=== PATIENT | male | born 1995 | race Caucasian/White ===

== ENCOUNTER 2019-04-19 15:04 | Emergency (ER) | payer BC ==
[~2019-04-19] VITALS: Ht 180.3 cm; Wt 61.2 kg
[2019-04-19] MEDS ORDERED: NKM (15:19)
--- NOTE | 2019-04-19 15:25 | NUR ---
ED Nurse Note: pt walked in to ED for eval. pt denies any pain at this time. per pt, "had pressure non-radiated cp for 24 hrs." unable to sleep for last couple days. skin warm to touch. AAO x4. respirationse even and non-labored noted. on compliance monitor. urine sample sent. ekg done. will wait for the further order.
[2019-04-19 15:49] VITALS: BP 116/62
[2019-04-19 15:50] LABS: APPEARANCE,URINE CLEAR; BILIRUBIN, URINE NEGATIVE (NEGATIVE); COLOR,URINE PALE YELLOW; GLUCOSE, URINE (UA) NEGATIVE (NEGATIVE); KETONES,URINE NEGATIVE (NEGATIVE); LEUKOCYTE ESTERASE ,URINE NEGATIVE (NEGATIVE); NITRITE,URINE NEGATIVE (NEGATIVE); PH,URINE 8 (4.5-8.0); PROTEIN,URINE NEGATIVE (NEGATIVE); UROBILINOGEN,URINE NORMAL MG/DL (0.0-1.0)
[2019-04-19 16:06] LABS: BASOPHILS % (AUTO) 0.8 % (0.0-2.0); HEMATOCRIT 39.9 % (42.0-52.0); HEMOGLOBIN 14.1 G/DL (14.2-18.0); LYMPHOCYTES % (AUTO) 27.1 % (20.0-45.0); MEAN CORPUSCULAR VOLUME 89 FL (80-99); MONOCYTES % (AUTO) 7.8 % (1.0-10.0); NEUTROPHILS % (AUTO) 56.4 % (45.0-75.0); PLATELET COUNT 187 K/UL (150-450); RED BLOOD COUNT 4.47 M/UL (4.70-6.10); RED CELL DISTRIBUTION WIDTH 10.1 % (11.6-14.8); WHITE BLOOD COUNT 7.3 K/UL (4.8-10.8)
[2019-04-19 16:18] LABS: ANION GAP 9 mmol/L (5-15); BLOOD UREA NITROGEN 10 mg/dL (7-18); CALCIUM 9.4 MG/DL (8.5-10.1); CARBON DIOXIDE 27 MMOL/L (21-32); CHLORIDE 104 MMOL/L (98-107); CREATININE 1.3 MG/DL (0.55-1.30); SODIUM 139 MMOL/L (136-145)
[2019-04-19 16:31] LABS: ALANINE AMINOTRANSFERASE 20 U/L (12-78); ALBUMIN 4.2 G/DL (3.4-5.0); ALBUMIN/GLOBULIN RATIO 1.4 (1.0-2.7); ALKALINE PHOSPHATASE 58 U/L (46-116); ASPARTATE AMINO TRANSFERASE 18 U/L (15-37); BILIRUBIN,TOTAL 0.4 MG/DL (0.2-1.0); CKMB 0.7 NG/ML (0.0-3.6); CREATINE KINASE 114 U/L (26-308)
--- NOTE | 2019-04-19 17:05 | Emergency Room Report ---
History of Present Illness General Chief Complaint: Chest Pain Source: Patient Present Illness HPI 23-year-old male with past medical complaining of chest pain last night. Patient reports that he consumes a lot of caffeine at night and this stays awake to work on his computer. Patient has a history of vaping and e-cigarette use however stopped doing that 5 weeks ago and has been using nicotine gums. Denies pain radiation to the jaw and arm, denies shortness of breath, denies palpitation, dizziness and headache. Patient reports that he was once told by his school nurse that he has a low lung capacity and was given albuterol inhaler for wheezing and the wheezing resolved for 2 weeks of using it. She has never had a chest x-ray in this regard. Denies drug use, alcohol intake. Denies abdominal pain, nausea vomiting. Denies consumption of spicy and acidic food. Complains of stress and anxiety however denies SI and HI. Allergies: Coded Allergies: No Known Allergies (Unverified , 04/19/19) Patient History Past Medical History: see triage record Past Surgical History: unable to obtain Pertinent Family History: none Social History: Reports: smoking - vaping, E cigarettes Immunizations: UTD Reviewed Nursing Documentation: PMH: Agreed; PSxH: Agreed Nursing Documentation-PMH Past Medical History: No Stated History Review of Systems All Other Systems: negative except mentioned in HPI Physical Exam Vital Signs Date Time Temp Pulse Resp B/P (MAP) Pulse Ox O2 Delivery O2 Flow Rate FiO2 04/19/19 15:17 98.1 68 19 113/65 (81) 99 Room Air Sp02 EP Interpretation: reviewed, normal General Appearance: no apparent distress, alert, GCS 15, non-toxic Head: normocephalic, atraumatic Eyes: bilateral eye normal inspection, bilateral eye PERRL ENT: hearing grossly normal, normal pharynx, no angioedema, normal voice Neck: full range of motion, supple/symm/no masses Respiratory: chest non-tender, lungs clear, normal breath sounds, no rhonchi, no respiratory distress, no retraction, no wheezing, speaking full sentences Cardiovascular #1: regular rate, rhythm, no edema, no murmur Cardiovascular #2: 2+ carotid (R), 2+ carotid (L), 2+ radial (R), 2+ radial (L) , 2+ dorsalis pedis (R), 2+ dorsalis pedis (L) Gastrointestinal: normal bowel sounds, non tender, soft, non-distended, no guarding, no rebound Genitourinary: normal inspection, no CVA tenderness Musculoskeletal: back normal, gait/station normal, normal range of motion, non- tender, calf tenderness Neurologic: alert, oriented x3, responsive, motor strength/tone normal, sensory intact, speech normal Psychiatric: judgement/insight normal, memory normal, mood/affect normal, no suicidal/homicidal ideation Skin: no rash Lymphatic: no adenopathy Medical Decision Making PA Attestation Diagnosis and treatment plans were reviewed and discussed with my supervising physician Dr. Sullivan Diagnostic Impression: Primary Impression: Chest pain Additional Impression: Caffeine adverse reaction ER Course 23-year-old male with past medical complaining of chest pain last night. Patient reports that he consumes a lot of caffeine at night and this stays awake to work on his computer. Patient has a history of vaping and e-cigarette use however stopped doing that 5 weeks ago and has been using nicotine gums. Denies pain radiation to the jaw and arm, denies shortness of breath, denies palpitation, dizziness and headache. Patient reports that he was once told by his school nurse that he has a low lung capacity and was given albuterol inhaler for wheezing and the wheezing resolved for 2 weeks of using it. She has never had a chest x-ray in this regard. Denies drug use, alcohol intake. Denies abdominal pain, nausea vomiting. Denies consumption of spicy and acidic food. Complains of stress and anxiety however denies SI and HI. Ddx considered but are not limited to: [place], Angina, COPD, GERD, chest pain of unspecified origin caffeine adverse reaction Vital signs: are WNL, pt. is afebrile H&PE are most consistent with chest pain secondary to anxiety and caffeine intake ORDERS: EKG, Chest XR, cardiac labs(troponin, CBC, CMP, lipid, BNP), Motrin ED INTERVENTIONS: None required at this time. DISCHARGE: At this time pt. is stable for d/c to home. Will provide printed patient care instructions, and any necessary prescriptions. Care plan and follow up instructions have been discussed with the patient prior to discharge. Patient to follow-up with her primary care provider and also be sent to [employer] travel counselor also consider management of anxiety via a therapist. If worsening symptoms return to the emergency room avoid smoking reduce caffeine intake EKG Diagnostic Results Rate: normal Rhythm: NSR ST Segments: no acute changes Other Impression No acute ST changes noted no SVT noted Chest X-Ray Diagnostic Results Chest X-Ray Diagnostic Results : Chest X-Ray Ordered: Yes # of Views/Limited/Complete: 1 View Indication: Chest Pain EP Interpretation: Yes PA Xray: Interpretation reviewed, by supervising MD, and agrees with findings. Interpretation: no consolidation, no effusion, no pneumothorax Impression: No acute disease Electronically Signed by: Regulo Brice PA-C Last Vital Signs Date Time Temp Pulse Resp B/P (MAP) Pulse Ox O2 Delivery O2 Flow Rate FiO2 04/19/19 15:49 98.1 61 18 116/62 99 Room Air Disposition: HOME, SELF-CARE Condition: Stable Scripts Ibuprofen* (MOTRIN*) 600 Mg Tablet 600 MG ORAL Q6H PRN for For Pain, #30 TAB Prov: Regulo Koehler 04/19/19 Patient Instructions: Nonspecific Chest Pain Additional Instructions: Chest pain most likely secondary to caffeine intake and stress follow-up with your primary care provider if worsening symptoms return to the emergency room increase your oral hydration Regulo Koehler Apr 19, 2019 17:05
[2019-04-19] MEDS ORDERED: IBUPROFEN600 MG ORAL (17:06)
--- NOTE | 2019-04-19 17:29 | NUR ---
ER DISCHARGE NOTE: Patient is cleared to be discharged per ERMD, pt is aox4, on room air, with stable vital signs. pt was given dc and prescription instructions, pt was able to verbalize understanding, pt id band and iv site removed without complications. pt is able to ambulate with steady gait. pt took all belongings.
--- NOTE | 2019-04-19 18:36 | Diagnostic Imaging Report ---
EXAM: XR Chest, 1 View CLINICAL HISTORY: PAIN TECHNIQUE: Frontal view of the chest. COMPARISON: No relevant prior studies available. FINDINGS: Lungs: Possible mild relative hyperinflation of the left thoracic cavity compared with the right of uncertain significance. Correlate clinically. Pleural space: Unremarkable. No pneumothorax. Heart: Unremarkable. No cardiomegaly. Mediastinum: Unremarkable. Bones joints: Unremarkable. IMPRESSION: 1. Possible mild relative hyperinflation of the left thoracic cavity compared with the right of uncertain significance. Correlate clinically. 2. Otherwise no acute cardiopulmonary disease.
--- NOTE | 2019-04-20 17:18 | Cardiology Report ---
APPROVED REPORT EKG Measurement Heart [id number] NM [id number] Sinus rhythm with premature atrial complexes Rightward axis Borderline ECG
== END 2019-04-19 17:28 | disposition home or self-care (01) ==
LOC: EMR 15:45
DX: R07.9 Chest pain, unspecified (principal); T43.615A Adverse effect of caffeine, initial encounter; F17.200 Nicotine dependence, unspecified, uncomplicated; F41.9 Anxiety disorder, unspecified
CPT/HCPCS: 36415; 71045; 80053; 80307; 81003; 82550; 82553; 83880; 84484; 85025; 85610; 85730; 86850; 86900; 86901; 93005; 99284